=== PATIENT | male | born 1975 | race Caucasian/White ===

== ENCOUNTER 2016-12-17 00:23 | Emergency (ER) | payer OTHER ==
[~2016-12-17] VITALS: Ht 190.5 cm; Wt 101.6 kg
[~2016-12-17 00:23] MED LIST: BACLOFEN10 MG PO; BACTRIM,SEPT1 TABLET PO; FLEXERIL10 MG PO; LIDODERM 5% P1 PATCH TD; MOBIC15 MG PO; NAPROSYN500 MG PO; NAPROXEN500 MG PO; NOHOMEMEDS; NORCO 5/3251 TABLET PO; PERCOCET 5/31 TABLET PO; VALIUM5 MG PO
[2016-12-17] MEDS ORDERED: NAPROXEN500 MG PO (01:24)
[2016-12-17 01:51] VITALS: BP 128/90
== END 2016-12-17 01:53 | disposition home or self-care (01) ==
LOC: EME 00:23 → EXP 00:23
DX: M77.8 Other enthesopathies, not elsewhere classified (principal); Z98.890 Other specified postprocedural states
CPT/HCPCS: 99281; 99284; J8540

== ENCOUNTER 2017-01-28 00:13 | Emergency (ER) | payer OTHER ==
[~2017-01-28] VITALS: Ht 190.5 cm; Wt 102.1 kg
[2017-01-28 03:23] LABS: ERTH.SED.RATE 6 MM/HR (0-15)
[2017-01-28 03:31] LABS: HEMATOCRIT 41.6 % (38.0-50.0); MCH 31.2 PG (29.0-34.0); MCHC 34.4 G/DL (30.0-36.0); MCV 90.8 FL (86-99); MEAN PLAT.VOLUME 9.6 uM^3 (9.0-12.4); PLATELET COUNT 216 K/uL (156-360); RBC DIS.WIDTH-CV 12.8 % (11.8-14.6); RBC DIS.WIDTH-SD 42.5 % (39-53); RED BLOOD COUNT 4.58 M/uL (4.00-5.50); WHITE BLOOD COUNT 13.4 K/uL (4.1-10.2)
[2017-01-28 03:32] LABS: EOSINOPHIL (%) 1.9 % (0-5); IMMATURE GRANULOCYTE (%) 0.3 % (0.0-0.7); MONOCYTE (%) 7.9 % (3-12); NEUTROPHIL (%) 50.2 % (45-76)
[2017-01-28 03:35] LABS: ANION GAP 14 MEQ/L (2-14); CHLORIDE 105 MEQ/L (99-109); GFR ESTIMATE (CALCULATED) > 59 mL/min/; GLUCOSE 91 mg/dL (70-99); POTASSIUM 3.9 MEQ/L (3.7-5.4); SODIUM 140 MEQ/L (136-147); UREA NITROGEN (BUN) 11 mg/dL (9-23)
[2017-01-28 03:37] LABS: INTER. NORMALIZED RATIO 1.2; PTT 29.4 SEC (25-37)
[2017-01-28] MEDS ORDERED: CLEOCIN300 MG PO (05:18)
[2017-01-28] MEDS ORDERED: CLINDAMYCIN HC150 MG PO (05:18)
[2017-01-28 05:43] VITALS: BP 136/97
== END 2017-01-28 05:52 | disposition home or self-care (01) ==
LOC: EME 00:13
PROVIDERS: Emergency Medicine
DX: L03.115 Cellulitis of right lower limb (principal); R53.83 Other fatigue; Z88.0 Allergy status to penicillin; F17.200 Nicotine dependence, unspecified, uncomplicated
CPT/HCPCS: 73562; 80048; 83605; 85025; 85610; 85651; 85730; 99281; 99284

== ENCOUNTER 2017-06-08 10:24 | Emergency (ER) | payer OTHER ==
[~2017-06-08] VITALS: Ht 190.5 cm; Wt 106.1 kg
[~2017-06-08 10:24] MED LIST changes: +CLEOCIN300 MG PO; +CLINDAMYCIN HC150 MG PO
[2017-06-08] MEDS ORDERED: BACLOFEN10 MG PO (13:15)
[2017-06-08] MEDS ORDERED: NORCO 5/3251 TABLET PO (13:15)
[2017-06-08] MEDS ORDERED: PREDNISONE50 MG PO (13:15)
[2017-06-08 13:28] VITALS: BP 130/80
== END 2017-06-08 13:29 | disposition home or self-care (01) ==
LOC: EME 10:24
DX: M54.12 Radiculopathy, cervical region (principal); F17.200 Nicotine dependence, unspecified, uncomplicated; Z88.0 Allergy status to penicillin
CPT/HCPCS: 93005; 99281; 99284

== ENCOUNTER 2017-07-13 12:02 | Emergency (ER) | payer OTHER ==
[~2017-07-13] VITALS: Ht 190.5 cm; Wt 103.0 kg
[~2017-07-13 12:02] MED LIST changes: +PREDNISONE50 MG PO
[2017-07-13 12:35] LABS: HEMATOCRIT 45.5 % (38.0-50.0); HEMOGLOBIN 16.7 G/DL (12.5-16.6); MCH 31.8 PG (29.0-34.0); MCHC 36.7 G/DL (30.0-36.0); MCV 86.7 FL (86-99); PLATELET COUNT 245 K/uL (156-360); RBC DIS.WIDTH-CV 12.1 % (11.8-14.6); RBC DIS.WIDTH-SD 38.7 % (39-53); RED BLOOD COUNT 5.25 M/uL (4.00-5.50); WHITE BLOOD COUNT 9.4 K/uL (4.1-10.2)
[2017-07-13 12:50] LABS: ALBUMIN 4.6 g/dL (3.2-4.8)
[2017-07-13 12:51] LABS: CHLORIDE 103 mEq/L (99-109); POTASSIUM 4.1 mEq/L (3.7-5.4); SODIUM 138 mEq/L (136-147)
[2017-07-13 12:53] LABS: GLUCOSE 92 mg/dL (70-99); TOTAL PROTEIN 7.8 g/dL (6.4-8.3)
[2017-07-13 12:55] LABS: TOTAL BILIRUBIN 0.6 mg/dL (0.0-1.0)
[2017-07-13 12:55] LABS: APPEARANCE CLEAR ((CLEAR)); BILIRUBIN NEGATIVE; BLOOD NEGATIVE; COLOR YELLOW ((YELLOW)); GLUCOSE (STRIP) NEGATIVE; KETONES NEGATIVE; LEUKOCYTES NEGATIVE; NITRITE NEGATIVE; PROTEIN (STRIP) NEGATIVE; SPECIFIC GRAVITY 1.012 (1.000-1.030); UCUL ADDED? NO; UROBILINOGEN 0.2 MG/DL (0.2-1.0)
[2017-07-13 12:56] LABS: ALKALINE PHOSPHATASE 79 IU/L (3-129)
[2017-07-13 12:57] LABS: CREATININE 0.8 mg/dL (0.6-1.3); GFR ESTIMATE (CALCULATED) > 59 mL/min/ (58.99-99999)
[2017-07-13 12:58] LABS: AST (GOT) 24 IU/L (2-34); UREA NITROGEN (BUN) 13 mg/dL (9-23)
[2017-07-13 12:59] LABS: ALT (GPT) 37 IU/L (3-49)
[2017-07-13 13:53] LABS: AMPHETAMINE NEGATIVE (500 ng/mL); BARBITURATES NEGATIVE (200 ng/mL); BENZODIAZEPINES NEGATIVE (150 ng/mL); BUPRENORPHINE NEGATIVE (10 ng/mL); COCAINE NEGATIVE (150 ng/mL); METHADONE NEGATIVE (200 ng/mL); METHAMPHETAMINE NEGATIVE (500 ng/mL); OPIATES (MORPHINE) NEGATIVE (100 ng/mL); OXYCODONE NEGATIVE (100 ng/mL); PHENCYCLIDINE NEGATIVE (25 ng/mL); PROPOXYPHENE NEGATIVE (300 ng/mL); THC CANNABINOIDS NEGATIVE (50 ng/mL); TRICYCLIC ANTIDEPRESSANTS NEGATIVE (300 ng/mL)
[2017-07-13 14:03] LABS: ERTH.SED.RATE 6 MM/HR (0-15)
[2017-07-13 15:47] LABS: C-REACTIVE PROTEIN < 1.0 MG/L (0-10)
[2017-07-13] MEDS ORDERED: BACLOFEN10 MG PO (17:17)
[2017-07-13 17:25] LABS: CSF PROTEIN 88 mg/dL (15-45)
[2017-07-13 17:30] LABS: APPEARANCE CLEAR/COLORLESS; CSF TUBE NUMBER TUBE #4; GLUCOSE, CSF 55 mg/dL (40-80); RED CELL COUNT 0 /MM^3 (0-1)
[2017-07-13 17:31] LABS: CSF EOSINOPHILS ND % (0-25); MONONUCLEAR WBC'S ND % (50-90); POLYNUCLEAR WBC'S ND % (0-3); WHITE CELL COUNT 0 /MM^3 (0-5)
[2017-07-13] MEDS ORDERED: FIORICET 50-301 EAC1 PO (17:32)
[2017-07-13 17:45] VITALS: BP 119/60
== END 2017-07-13 17:56 | disposition home or self-care (01) ==
LOC: EME 12:02
PROVIDERS: Nurse Practitioner Family
PROC: 009U3ZX Drainage of Spinal Canal, Percutaneous Approach, Diagnostic (ICD-10-PCS; principal; 2017-07-13)
DX: G43.909 Migraine, unspecified, not intractable, without status migrainosus (principal); M54.9 Dorsalgia, unspecified; Z88.0 Allergy status to penicillin
CPT/HCPCS: 70450; 71275; 72070; 80053; 81003; 82945; 84157; 85027; 85652; 86140; 87070; 87205; 89051; 99281; 99285; J1200; J1885; J2765; J7030

== ENCOUNTER 2017-07-15 12:11 | Emergency (ER) | payer OTHER ==
[~2017-07-15] VITALS: Ht 190.5 cm; Wt 102.5 kg
[~2017-07-15 12:11] MED LIST changes: +FIORICET 50-301 EAC1 PO
[2017-07-15] MEDS ORDERED: MOBIC7.5 MG PO (13:59)
[2017-07-15 14:07] VITALS: BP 127/96
== END 2017-07-15 14:08 | disposition home or self-care (01) ==
LOC: EME 12:11
DX: T80.1XXA Vascular complications following infusion, transfusion and therapeutic injection, initial encounter (principal); I80.8 Phlebitis and thrombophlebitis of other sites; M54.2 Cervicalgia; R51 Headache; F17.200 Nicotine dependence, unspecified, uncomplicated
CPT/HCPCS: 99281; 99284